=== PATIENT | female | born 1930 | race Caucasian/White ===

== ENCOUNTER 2017-10-07 22:48 | Emergency (ER) | payer OTHER ==
[2017-10-07 23:04] VITALS: BP 104/60; PULSE 62; TEMP 98; BMI 19.5
--- NOTE | 2017-10-07 23:39 | PDOC ---
History of Present Illness - History of Present Illness Initial Comments: 10/07/17 23:49 The patient is a 87 year old female, with a significant past medical history of osteoarthritis, HTN, presents s/p fall. The patient reports that she was in the ICU attending to her daughter when she slipped and fell on her left buttox. The patient is able to stand and ambulate. She denies any head injury, loc, neck pain, back pain. She reports some right shoulder soreness from twisting. 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 She denies recent fevers, chills, headache or dizziness. She denies recent nausea, vomit, diarrhea or constipation. She denies recent dysuria, frequency, urgency or hematuria. She denies recent chest pain or shortness of breath. Allergies: codeine <Luz Maria Alcazar - Last Filed: 10/07/17 23:57> <Belinda Ronquillo - Last Filed: 10/08/17 20:58> - General Chief Complaint: Injury Stated Complaint: FALL INJURY Time Seen by Provider: 10/07/17 23:22 Past History <Luz Maria Alcazar - Last Filed: 10/07/17 23:57> - Past Medical History Cardiac Disorders: Yes (PACEMAKER) GI Disorders: Yes (GERD, DIVERTICULITIS) HTN: Yes - Immunization History Immunization Up to Date: Yes - Suicide/Smoking/Psychosocial Hx Smoking Status: No Smoking History: Never smoked Have you smoked in the past 12 months: No Number of Cigarettes Smoked Daily: 0 Hx Alcohol Use: No Drug/Substance Use Hx: No Substance Use Type: None <Belinda Ronquillo - Last Filed: 10/08/17 20:58> - Past Medical History Allergies/Adverse Reactions: Allergies Allergy/AdvReac Type Severity Reaction Status Date / Time codeine [Codeine] Allergy Verified 10/07/17 23:00 Codeine Allergy Uncoded 10/07/17 23:00 Home Medications: Ambulatory Orders Aspirin [Aspirin EC] 81 mg PO HS 05/26/16 Review of Systems - Review of Systems Comments:: 10/07/17 23:49 CONSTITUTIONAL: Absent: fever, no chills, no fatigue EYES: Absent: visual changes ENT: Absent: ear pain, no sore throat CARDIOVASCULAR: Absent: chest pain, no palpitations RESPIRATORY: Present: cough Absent: no SOB GI: Absent: abdominal pain, no nausea, no vomiting, no constipation, no diarrhea GENITOURINARY: Absent: dysuria, no frequency, no hematuria MUSCULOSKELETAL: Present: left buttox pain, right shoulder soreness Absent: back pain, no arthralgia, SKIN: Absent: rash NEURO: Absent: headache <IngeLuz Maria - Last Filed: 10/07/17 23:57> *Physical Exam - Vital Signs Last Vital Signs Temp Pulse Resp BP Pulse Ox 98 F 62 16 104/60 99 10/07/17 23:00 10/07/17 23:00 10/07/17 23:00 10/07/17 23:00 10/07/17 23:00 - Physical Exam Comments: 10/07/17 23:49 GENERAL: Very thin appearing. Able to ambulate with ease. No apparent distress. HEENT: Normocephalic, atraumatic. PERRL, EOM intact. CARDIOVASCULAR: Normal S1, S2. Regular rate and rhythm. PULMONARY: Clear to auscultation bilaterally. ABDOMEN: Soft, non-distended, non-tender. EXTREMITIES: Full ROM in all four extremities. Able to bend and elevate her legs without pain. Able to reach over her head completely with right arm. No gross deformities. SKIN: Warm, dry. No rash NEUROLOGICAL: No focal neurological deficits. <IngeLuz Maria - Last Filed: 10/07/17 23:57> - Vital Signs Last Vital Signs Temp Pulse Resp BP Pulse Ox 98 F 62 16 104/60 99 10/07/17 23:00 10/07/17 23:00 10/07/17 23:00 10/07/17 23:00 10/07/17 23:00 <Belinda Ronquillo - Last Filed: 10/08/17 20:58> Medical Decision Making - Medical Decision Making 10/08/17 20:56 -year-old female who was upstairs in ICU visiting her daughter, slipped and fell on her buttocks. She has ambulating in the ER. She was complaining of some left buttocks pain and right arm pain. She has full range of motion of her right arm. There is no visible deformity. There is no neurovascular compromise to her right arm. Pelvic x-ray did not show any fracture. Patient was discharged home I did call ICU and asked them to write an incident report <Belinda Ronquillo - Last Filed: 10/08/17 20:58> *DC/Admit/Observation/Transfer - Attestations Scribe Attestion: 10/07/17 23:50 Documentation prepared by Luz Maria Alcazar, acting as medical tech for Belinda Ronquillo MD. <Luz Maria Alcazar - Last Filed: 10/07/17 23:57> <Belinda Ronquillo - Last Filed: 10/08/17 20:58> Diagnosis at time of Disposition: Acute buttock pain Right shoulder injury Qualifiers: Encounter type: initial encounter Qualified Code(s): S49.91XA - Unspecified injury of right shoulder and upper arm, initial encounter Accidental fall Qualifiers: Encounter type: initial encounter Qualified Code(s): W19.XXXA - Unspecified fall, initial encounter - Discharge Dispostion Disposition: HOME Condition at time of disposition: Stable - Patient Instructions Printed Discharge Instructions: DI for Low Back Pain, DI for Shoulder Pain Additional Instructions: please take tylenol if you have any worsening pain
== END 2017-10-08 00:31 | disposition home or self-care (01) ==
LOC: JER 22:48
DX: S49.81XA Other specified injuries of right shoulder and upper arm, initial encounter (principal); W01.0XXA Fall on same level from slipping, tripping and stumbling without subsequent striking against object, initial encounter; Y93.89 Activity, other specified; Y92.230 Patient room in hospital as the place of occurrence of the external cause; Y99.8 Other external cause status; I10 Essential (primary) hypertension; M15.9 Polyosteoarthritis, unspecified
CPT/HCPCS: 72170-TC; 99281-25